=== PATIENT | male | born 1985 | race Two or more races ===

== ENCOUNTER 2025-10-05 09:45 | Emergency (ER) | payer SELFPAY ==
[~2025-10-05] VITALS: Ht 167.6 cm; Wt 81.8 kg
--- NOTE | 2025-10-05 10:12 | ED.PDOC ---
SOB-HPI HPI Comments A 40 YEAR OLD MALE WITH PHMX OF ENDOCARDITIS PRESENTS TO THE ED WITH COMPLAINT OF FLU LIKE SYMPTOMS. PATIENT REPORTS SOB AND DIZZINESS. PATIENT DENIES FEVER, CHILLS, CHEST PAIN, ABDOMINAL PAIN, NAUSEA, VOMITING, HEADACHE, OR OTHER COMPLAINTS. NO OTHER SYMPTOMS OR MODIFYING FACTORS AT THIS TIME. PATIENT IS ALERT, ORIENTED X 4, AND HAS STEADY GAIT. Chief Complaint: Flu like Time Seen by MD: 10:08 Reviewed notes: Nurses Notes, Medications, Allergies Mode of Arrival: Ambulatory Severity: Moderate Timing: Days Duration: Days Context: Spontaneous Onset PE Risk Factors: None History of: Recent URI Prehospital treatment: None Associated Signs and Symptoms: Other (SHORTNESS OF BREATH, DIZZINESS) If cough with SOB: Productive Past Medical History PAST MEDICAL HISTORY: Denies Surgical History: Denies all surgeries Family History Family History: Reviewed,noncontributory to illness, No family hx of Cancer, No family hx of DM, No family hx of Heart say, No family hx of HTN, No family hx ofKidney say, No family hx of Liver say, No family hx of Lung say, No family hx of Stroke Social History Smoker: Non-Smoker Alcohol: Denies ETOH Use Drugs: Denies Drug Use Lives In: Home Was a procedure done? Was a procedure done?: No Differential Dx Differential Diagnosis: Asthma, Bronchitis, Pneumonia, Sinusitis X-Ray, Labs, Meds, VS Vital Signs Date Time Temp Pulse Resp B/P (MAP) Pulse Ox O2 Delivery O2 Flow Rate FiO2 10/05/25 10:38 98.2 106 18 136/94 (108) 97 98.2 10/05/25 10:38 106 18 97 Room Air 10/05/25 09:47 98.2 106 18 136/94 97 98.2 X-Ray, Labs, Meds, VS Comment COURSE: EXTERNAL MEDICAL RECORDS REVIEWED: [NONE] INDEPENDENT HISTORIANS: [NONE] SOCIAL DETERMINANTS OF HEALTH: [NONE] LABS ORDERED: NONE REVIEWED AND INTERPRETED RESULTS: NONE IMAGING ORDERED: CHEST XRAY TREATMENTS ORDERED: NONE PROCEDURES PERFORMED: NONE CRITICAL CARE TIME: NONE I HAVE DISCUSSED THE PATIENT WITH THE ATTENDING PHYSICIAN DR. FOSTER AND HE AGREES WITH THE PATIENT'S PLAN OF CARE AND DISPOSITION. BASED ON HISTORY OF PRESENT ILLNESS, AND PHYSICAL EXAM, PATIENT WILL BE DISCHARGED HOME. DISCUSSED PLAN FOR DISCHARGE HOME WITH RX []. MEDICATION WARNINGS GIVEN. SHARED DECISION MAKING: DISCUSSED WITH PATIENT THAT THEIR WORKUP WAS NORMAL. P ATIENT INSTRUCTED TO FOLLOW UP WITH PRIMARY CARE PROVIDER IN 1-2 DAYS FOR RE- EVALUATION OF SYMPTOMS. PATIENT VERBALIZES UNDERSTANDING TO RETURN TO ED FOR NEW OR WORSENING SYMPTOMS OR IF FOLLOW UP WITH PCP CANNOT BE OBTAINED. PATIENT FEELS COMFORTABLE GOING HOME AT THIS TIME. ALL QUESTIONS ADDRESSED AT TIME OF DISCHARGE. Reevaluation 1ST: Unchanged Patient Education/Counseling: Diagnosis, Treatment, Need For Follow Up Family Education/Counseling: Diagnosis, Treatment, Need For Follow Up, No Family Present SEPSIS Sepsis Screen Date sepsis recognized/suspect: Oct 05, 2025 Time Sepsis recognized/suspect: 946 Recent Procedure: No On Antibiotic Therapy: No Respiratory Rate >20: No Heart Rate >90: Yes Temp<36 C (96.8 F) or >38.3 C: No SBP <90 or MAP <65 mmHG: No New Acute Mental Status Change: No Is the patient on CPAP, BIPAP,: No Vital Signs Date Time Temp Pulse Resp B/P (MAP) Pulse Ox O2 Delivery O2 Flow Rate FiO2 10/05/25 10:38 98.2 106 18 136/94 (108) 97 98.2 10/05/25 10:38 106 18 97 Room Air 10/05/25 09:47 98.2 106 18 136/94 97 98.2 Critical Care Note Critical Care Time?: No Stability Stability form required: No Heart Score Heart Score: Heart Score Response (Comments) Value History N/A 0 EKG N/A 0 Age N/A 0 Risk Factors N/A 0 Troponin N/A 0 Total 0 I personally scribed for AIDAN WONG ([email or web address]) on 10/05/25 at 10:12. Electronically submitted by Elvia Parra ([employer]). I personally scribed for AIDAN WONG ([email or web address]) on 10/05/25 at 10:19. Electronically submitted by Elvia Parra ([employer]). AIDAN WONG Oct 05, 2025 10:12
[2025-10-05 10:38] VITALS: BP 136/94; PULSE 106; RESP 18; TEMP 98.2; O2SAT 97
== END 2025-10-05 11:01 | disposition left against medical advice (07) ==
LOC: ER 09:45
DX: R06.02 Shortness of breath (principal); R42 Dizziness and giddiness; Z53.21 Procedure and treatment not carried out due to patient leaving prior to being seen by health care provider